=== PATIENT | female | born 1980 | race Caucasian/White ===

== ENCOUNTER 2016-08-18 08:14 | Emergency (ER) | payer MEDICAID ==
[~2016-08-18] VITALS: Wt 100.0 kg
[2016-08-18] MEDS ORDERED: KETOROLAC 30 MG INJ IM STA (09:29)
--- NOTE | 2016-08-18 10:09 | RADRPT ---
PROCEDURE: XR Knee. CLINICAL INDICATION: Left knee pain. TECHNIQUE: AP, lateral, and oblique views of the left knee are available for review. COMPARISON: None available FINDINGS: The osseous structures, articular spaces, and surrounding soft tissues of the left knee are all unre markable. No acute fracture or dislocation is seen. No radiopaque foreign body is identified. Ali gnment is anatomic. No joint effusion is seen. IMPRESSION: 1. Unremarkable left knee x-ray series. 2. No acute fracture or dislocation is seen. RPTAT: GG .Julio C Gregorio MD, MD Date Time Electronically viewed and signed by .Julio C Gregorio MD, MD on 08/18/2016 10:08 .L/
--- NOTE | 2016-08-18 10:22 | ERD ---
ER Documentation Chief Complaint Date/Time DATE: 08/18/16 TIME: 10:19 Chief Complaint LEFT KNEE PAIN FOR 2 WKS AND FELT A SNAP LAST NIGHT,NO WT BEARING HPI The patient is a 36-year-old female with no significant past medical history here with 2 weeks of left knee pain soreness and stiffness, worse since last night when she knelt down suddenly on her couch. She felt a sudden onset of pain at that time and has been unable to weight-bear or bend her knee or straighten it since. She denies numbness or tingling. Her pain is localized to the back of her knee and the front of her knee and is 9/10 in intensity. No home treatments. She has been using crutches at home since last night. ROS All systems reviewed and are negative except as per history of present illness. Medications Home Meds Active Scripts Ibuprofen* (Motrin*) 600 Mg Tab, 600 MG PO Q8, #30 TAB Prov:DEVEN LANDIN, PROFESSOR OF COMMUNICATION AND WRITING 08/18/16 Allergies Allergies: Coded Allergies: No Known Drug Allergy (Verified Allergy, Unknown, 12/24/06) PMhx/Soc Medical and Surgical Hx: Unable to obtain Hx Alcohol Use: No Hx Substance Use: No Hx Tobacco Use: No Smoking Status: Never smoker Physical Exam Vitals Vital Signs Date Time Temp Pulse Resp B/P Pulse Ox O2 Delivery O2 Flow Rate FiO2 08/18/16 08:16 98.9 77 20 140/81 99 Physical Exam INITIAL VITAL SIGNS: Reviewed by me GENERAL: Alert. Well developed and well nourished. No respiratory distress HEAD: Head is normocephalic. Atraumatic. EYES: EOMI. PERRL. No scleral icterus. No conjunctival injection. ENT: External ears, nose, and mouth normal. Nasal passages patent. Moist mucous membranes. NECK: Supple. Full range of motion. Trachea midline. RESPIRATORY: No tachypnea. Clear to auscultation bilaterally. No wheezing, rales , or rhonchi. CV: Regular rate and rhythm. No murmurs, rubs, or gallops ABDOMEN: Soft, non-distended, non-tender. No guarding. No rebound. No masses. Bowel sounds normal in all quadrants. BACK: No CVA tenderness. Full ROM. EXTREMITIES: Unable to weight-bear on the left leg. Patient unwilling to bend or straighten her left knee. Distal pulses strong. Sensation intact to light touch. Range of motion of toes and ankles intact. No obvious deformity. No edema. No external signs of trauma. No redness. No tracking. No calf tenderness to palpation.+ Tenderness to palpation medially and laterally of the patella.+ Tenderness to palpation behind the left knee. No bony tenderness to palpation of the patella, tibia, fibula, or femur. SKIN: Warm and dry. No diaphoresis. No obvious rashes or lesions. NEUROLOGIC: Alert and oriented x 3. Appropriate. Face is symmetric. Speech is normal. Moves all extremities equally. Results 24 hrs Current Medications Medications (Trade) Dose Ordered Sig/Marky Route PRN Reason Start Time Stop Time Status Last Admin Dose Admin Ketorolac Tromethamine (Toradol) 30 mg ONCE STAT IM 08/18/16 09:29 08/18/16 09:39 DC 08/18/16 09:48 [place] [id number] Radiology Main Line: [phone] DIAGNOSTIC IMAGING REPORT Patient: ONEYDA ROBLEDO : 1980 Age: 36 Sex: F MR #: [id number] DOS: 08/18/16928 Ordering MD: DEVEN LANDIN NP Location: [facility] Room/Bed: PROCEDURE: XR Knee. CLINICAL INDICATION: Left knee pain. TECHNIQUE: AP, lateral, and oblique views of the left knee are available for review. COMPARISON: None available FINDINGS: The osseous structures, articular spaces, and surrounding soft tissues of the left knee are all unremarkable. No acute fracture or dislocation is seen. No radiopaque foreign body is identified. Alignment is anatomic. No joint effusion is seen. IMPRESSION: 1. Unremarkable left knee x-ray series. 2. No acute fracture or dislocation is seen. RPTAT: GG .Julio C Gregorio MD, Date Time Electronically viewed and signed by .Julio C Gregorio MD, on 08/18/2016 10:08 .L/ CC: DEVEN LANDIN NP [place] [id number] Radiology Main Line: [phone] DIAGNOSTIC IMAGING REPORT Patient: ONEYDA ROBLEDO : 1980 Age: 36 Sex: F MR #: [id number] DOS: 08/18/16 0929 Ordering MD: DEVEN LANDIN NP Location: [facility] Room/Bed: PROCEDURE: US Lower extremity Venous. CLINICAL INDICATION: Pain and swelling TECHNIQUE: Multiple sonographic images of the left lower extremity deep venous system was obtained utilizing grayscale, color-flow, compressive sonography and doppler imaging with augmentation. The images were reviewed on a PACS workstation. COMPARISON: None. FINDINGS: There is normal compressibility and flow within the left common femoral, deep femoral, superficial femoral and popliteal veins. Normal respiratory variation and augmentation is seen. There is normal color flow and compressibility of left posterior tibial and peroneal veins IMPRESSION: No sonographic evidence for left lower extremity deep venous thrombosis. There is a 0.9 x 1.2 cm fluid collection in the popliteal fossa which likely represents a tiny Canales's cyst RPTAT: HH .Erickson Busch MD, MD Date Time Electronically viewed and signed by .Erickson Busch MD, on 08/18/2016 10:54 .W/ CC: DEVEN LANDIN NP Procedures/MDM Nursing Notes Reviewed Previous Medical Records requested via [employer]. EMERGENCY DEPARTMENT COURSE / MEDICAL DECISION MAKING: The patient comes to the ED secondary to left knee pain 2 weeks, worse since last night when she knelt down suddenly on her couch. Differential diagnosis upon initial evaluation includes but is not limited to: Fracture, dislocation, meniscal injury, tendon injury, soft tissue injury, DVT, Canales's cyst, septic joint, effusion, and others. The patient was treated with Toradol 30 mg IM and ice pack with resolution of her knee pain. Left knee x-ray per radiology report: IMPRESSION: 1. Unremarkable left knee x-ray series. 2. No acute fracture or dislocation is seen. Left lower extremity ultrasound per radiology report: IMPRESSION: No sonographic evidence for left lower extremity deep venous thrombosis. There is a 0.9 x 1.2 cm fluid collection in the popliteal fossa which likely represents a tiny Canales's cyst The case was discussed with supervising physician Dr. Espinoza Final impression: Ruptured Canales's cyst of the left knee Patient will be treated with knee immobilizer per her preference, crutches, weightbearing as tolerated, and ibuprofen. She will be instructed to follow-up with her primary care in order to get a referral for orthopedics. There is no joint laxity on exam. As such, I have low suspicion for ligamentous injury. Meniscal injury cannot be entirely ruled out, as I was unable to do a complete physical examination of the patient's left knee secondary to pain. I informed her of this and she verbalized understanding and agreed. I low suspicion for septic joint and/or effusion given the patient's x-ray and ultrasound results in addition to her physical exam findings. There is no swelling or redness at her left knee. The patient was not able to fit into the knee immobilizer due to her body habitus. The patient's left knee was wrapped with a wide Leonardo wrap. She was neurovascularly intact pre-and post-Leonardo wrap placement. She ambulated well and steadily using her crutches. Based on patient's history of present illness and physical examination the decision was made to discharge. The patient was re-evaluated after ED treatment and stabilizing measures, and symptoms have improved. There is no evidence of life threatening injuries or illnesses at this time. On re-examination, patient resting in no distress, stable vital signs, reports feeling better and safe for discharge with outpatient follow up with PMD in 1-2 days in order to get a referral for an orthopedist. Patient given return precautions. She verbalized understanding and agreed to return precautions. She will return here immediately for new or worsening symptoms. She was given a copy of her x-ray report, ultrasound report, and a disc containing her x-ray and ultrasound imaging. I instructed her to please keep these and bring them with her to her primary care and orthopedic follow-ups. She verbalized understanding and agreed. She was instructed on rest, ice, compression, and elevation. She verbalized understanding and agreed. She will use her crutches and Leonardo wrap for comfort. She will weight-bear as tolerated. Patient's blood pressure was elevated but appears stable without evidence of hypertensive emergency, end organ damage, chest pain or shortness of breath. The patient was counseled about the risks of untreated hypertension and urged to pursue outpatient monitoring and therapy in 2-3 days with their primary care physician. Prescription Ibuprofen DEVEN LANDIN NP Aug 18, 2016 10:22
--- NOTE | 2016-08-18 10:55 | RADRPT ---
PROCEDURE: US Lower extremity Venous. CLINICAL INDICATION: Pain and swelling TECHNIQUE: Multiple sonographic images of the left lower extremity deep venous system was obtained utilizing grayscale, color-flow, compressive sonography and doppler imaging with augmentation. The images were reviewed on a PACS workstation. COMPARISON: None. FINDINGS: There is normal compressibility and flow within the left common femoral, deep femoral, superficial f emoral and popliteal veins. Normal respiratory variation and augmentation is seen. There is normal color flow and compressibility of left posterior tibial and peroneal veins IMPRESSION: No sonographic evidence for left lower extremity deep venous thrombosis. There is a 0.9 x 1.2 cm fluid collection in the popliteal fossa which likely represents a tiny Canales 's cyst RPTAT: HH .Erickson Busch MD, Date Time Electronically viewed and signed by .Erickson Busch MD, on 08/18/2016 10:54 .W/
[2016-08-18] MEDS ORDERED: IBUP-1542 PO (11:24)
== END 2016-08-18 12:25 | disposition home or self-care (01) ==
LOC: FTE 08:14
DX: M66.0 Rupture of popliteal cyst (principal)
CPT/HCPCS: 29505; 73562; 93971; 96372; J1885; Z7502

== ENCOUNTER 2016-10-15 10:22 | Emergency (ER) | payer MEDICAID, OTHER ==
[~2016-10-15] VITALS: Ht 182.9 cm; Wt 130.0 kg
[~2016-10-15 10:22] MED LIST: IBUP-1542 PO
[2016-10-15 10:31] VITALS: Ht 182.9 cm; Wt 130.0 kg
[2016-10-15] MEDS ORDERED: KETOROLAC 15 MG INJ IM STA ×2 (12:17→13:21)
--- NOTE | 2016-10-15 12:22 | ERA ---
ER Documentation Chief Complaint Date/Time DATE: 10/15/16 TIME: 12:21 Chief Complaint HAS LEFT KNEE PAIN UNABLE TO BEND WITHOUT PAIN HPI Patient is a 36-year-old female with a history of a Canales's cyst 6 months ago. Patient states that the symptoms have returned. Chief complaint being pain behind the left knee. Patient denies cardiovascular personal and family history. Denies history of trauma. Pain is worse with movement and improves with rest. Denies tingling or numbness below the knee. ROS All systems reviewed and are negative except as per history of present illness. Medications Home Meds Active Scripts Ibuprofen* (Motrin*) 600 Mg Tab, 600 MG PO Q6H Y for PAIN AND OR ELEVATED TEMP, #30 TAB Prov:WILLIS PATEL PA-C 10/15/16 Ibuprofen* (Motrin*) 600 Mg Tab, 600 MG PO Q8, #30 TAB Prov:DEVEN LANDIN, WELLNESS PROGRAM ADMINISTRATOR 08/18/16 Allergies Allergies: Coded Allergies: No Known Drug Allergy (Verified Allergy, Unknown, 12/24/06) PMhx/Soc Medical and Surgical Hx: pt denies Medical Hx, pt denies Surgical Hx Hx Alcohol Use: No Hx Substance Use: No Hx Tobacco Use: No Physical Exam Vitals Vital Signs Date Time Temp Pulse Resp B/P Pulse Ox O2 Delivery O2 Flow Rate FiO2 10/15/16 14:52 97.6 80 16 150/74 97 Room Air 10/15/16 10:31 98.5 18 16 165/86 97 Physical Exam Const: [] Head: Atraumatic Eyes: Normal Conjunctiva ENT: Normal External Ears, Nose and Mouth. Neck: Full range of motion..~ No meningismus. Resp: Clear to auscultation bilaterally Cardio: Regular rate and rhythm, no murmurs Abd: Soft, non tender, non distended. Normal bowel sounds Skin: No petechiae or rashes Back: No midline or flank tenderness Ext: No cyanosis, or edema Neur: Awake and alert Psych: Normal Mood and Affect Results 24 hrs Current Medications Medications (Trade) Dose Ordered Sig/Marky Route PRN Reason Start Time Stop Time Status Last Admin Dose Admin Ketorolac Tromethamine (Toradol) 15 mg ONCE STAT IM 10/15/16 12:17 10/15/16 12:21 DC Ketorolac Tromethamine (Toradol) 15 mg ONCE STAT IM 10/15/16 13:21 10/15/16 13:22 DC 10/15/16 13:27 Procedures/MDM Patient is a morbidly obese 36-year-old female with complaining of pain behind the left knee. Got an ultrasound to rule out gastrocnemius tear versus is Canales 's cyst versus DVT. Ultrasound was unremarkable. X-ray was taken to rule out any bony pathology. X-ray came back unremarkable. XR of the affected site was unremarkable. At this time I am unable to rule out tendon or ligamentous injuries. Thus, the pt was given recommendations to follow up with ortho and advised to follow up with their PCP in the next 1-2 days to be formally referred to, and further evaluated for soft tissue injuries , by an retail customer service specialist. Pt will be discharged with an NSAID to control the pain. There is no need for stabilization with a brace or cast at this time. The pts function does not require an assistance device for ADL. Departure Diagnosis: Primary Impression: Knee injury Qualified Code: S89.92XA - Knee injury, left, initial encounter Additional Impression: Knee pain Qualified Code: M25.562 - Chronic pain of left knee Additional Instructions: Follow up with your PCP within the next 1-3 days for a more thorough evaluation and a possible referral to a specialist. Return the the emergency department immediately if symptoms worsen or change. If you have any questions regarding medications, ask your pharmacist or us before you leave. If any adverse reactions occur while taking your medications, discontinue the treatment and return to the emergency department immediately. Take your medications as directed, and complete the entire course of treatment. WILLIS PATEL PA-C Oct 15, 2016 12:22
--- NOTE | 2016-10-15 13:12 | RADRPT ---
PROCEDURE: US left lower extremity veins. CLINICAL INDICATION: Left leg pain and swelling. TECHNIQUE: Multiple longitudinal and transverse images of the left lower extremity veins were obta ined with driscoll scale and color Doppler imaging. The common femoral vein, femoral vein, and popliteal vein were evaluated. 2D grayscale measurements with compression sonography, pulsed Doppler, color D oppler, and pulsed Doppler with augmentation. COMPARISON: No prior studies are available for comparison. FINDINGS: The left common femoral, femoral and popliteal veins are normally compressible throughout. Color fl ow demonstrates normal filling of the vessels. Normal waveforms are visualized and there is normal response to augmentation. IMPRESSION: 1. No evidence of deep vein thrombosis involving the left lower extremity. RPTAT: QQ .Roberto Vaca MD, MD Date Time Electronically viewed and signed by .Roberto Vaca MD, on 10/15/2016 13:11 .R/
--- NOTE | 2016-10-15 14:20 | RADRPT ---
PROCEDURE: XR left knee. CLINICAL INDICATION: Knee pain TECHNIQUE: 3 views are available for review. COMPARISON: None available FINDINGS: The osseous structures are normal in mineralization, architecture and alignment. No fractures are i dentified. No osseous lesions are identified. The joints are unremarkable. The soft tissues are u nremarkable. IMPRESSION: Unremarkable examination RPTAT: HGDB .Shoaib Meadows MD, MD Date Time Electronically viewed and signed by .Shoaib Meadows MD, on 10/15/2016 14:19 .B/
--- NOTE | 2016-10-15 14:22 | RADRPT ---
PROCEDURE: XR Lumbar Spine. CLINICAL INDICATION: Low back pain. TECHNIQUE: Three-view of the lumbar spine are available for review COMPARISON: None available FINDINGS: The lumbar spine tilts to the right. There is mild L2-5 degenerative disk disease. This is associated with disk space narrowing, endpla te sclerosis and spondylosis. The vertebral bodies are otherwise normal in mineralization, architec ture and alignment. No fractures or osseous lesions are identified. No subluxation is demonstrated . The facet joints are unremarkable. The soft tissues are unremarkable. IMPRESSION: Mild L2-5 degenerative disk disease. RPTAT: HGDB .Shoaib Meadows MD, MD Date Time Electronically viewed and signed by .Shoaib Meadows MD, on 10/15/2016 14:21 .B/
[2016-10-15] MEDS ORDERED: IBUP-1542 PO (14:30)
[2016-10-15 14:52] VITALS: BP 150/74; PULSE 80; RESP 16; TEMP 97.6
== END 2016-10-15 14:52 | disposition home or self-care (01) ==
LOC: FTE 10:22
DX: S89.92XA Unspecified injury of left lower leg, initial encounter (principal); X58.XXXA Exposure to other specified factors, initial encounter; Y92.9 Unspecified place or not applicable
CPT/HCPCS: 72100; 73562; 93971; 96372; J1885; Z7502